=== PATIENT | female | born 1935 | race Caucasian/White ===

== ENCOUNTER 2020-02-14 11:34 | Outpatient (CLI) | payer MEDICARE, SELFPAY ==
[2020-02-14 12:17] LABS: Alanine Aminotransferase 8 U/L (4-35); Aspartate Amino Transferase 41 U/L (14-36)
== END 2020-02-14 11:35 | disposition home or self-care (01) ==
LOC: ANHLAB 11:40
PROVIDERS: PCP Family Medicine Sports Medicine; Visit Provider Podiatrist Foot & Ankle Surgery
DX: B35.1 Tinea unguium (principal)
CPT/HCPCS: 36415; 84450; 84460

== ENCOUNTER 2022-06-23 00:35 | Day surgery (SDC) | payer MEDICARE, SELFPAY ==
[2022-06-10 15:37] VITALS: BMI 29.7
[2022-06-23 10:05] VITALS: BP 166/65; PULSE 76; RESP 18; TEMP 36.1; O2SAT 99; BMI 29.3
--- NOTE | 2022-06-23 10:17 | WPDHPUPDATE1 ---
History and Physical Update Update Date/Time: 06/23/22 10:17 History and Physical has been reviewed, including an updated exam of the patient. There are NO changes in the patient's condition. Risks, benefits, and alternatives have been discussed and questions answered. Patient agrees to proceed with procedure.
[2022-06-23] MEDS: LACTATED RINGERS 1,000 ML 150 ML IV CONT (10:36)
--- NOTE | 2022-06-23 11:19 | WPDANESEPPF ---
Anes - Initial Pre Proc Eval Procedure: Operation Date: 06/23/22 11:30 Proposed Procedures p Colonoscopy - Richard Jones MD Date/Time: 06/23/22 11:19 Surgeon: Richard Jones MD Pre Op Diagnosis: change in stool Patient Data Age: 87 Gender: F Height: 1.55 m Weight: 70.5 kg Last Vital Signs Temp 96.9 F L 06/23/22 10:05 Pulse 76 06/23/22 10:05 Resp 18 06/23/22 10:05 BP 166/65 H 06/23/22 10:05 Pulse Ox 99 06/23/22 10:05 O2 Del Method Room Air 06/23/22 10:05 Allergies Allergy/AdvReac Type Severity Reaction Status Date / Time latex Allergy Unknown unknown Verified 06/23/22 10:14 naproxen [From Aleve] Allergy Unknown unknown Verified 06/23/22 10:14 Home Medications Medication Instructions Recorded Confirmed Type cholecalciferol (vitamin D3) 10 10 mcg PO DAILY 02/22/20 06/23/22 History mcg (400 unit) capsule levothyroxine 50 mcg capsule 50 mcg PO DAILY 02/22/20 06/23/22 History lisinopril 10 mg tablet 10 mg PO DAILY 02/22/20 06/23/22 History Adult One Daily Multivitamin 1 tab-cap PO DAILY 06/10/22 06/23/22 History Patient hx anesthesia problems: none Family hx anesthesia problems: none Results Review: All pre-operative results and documents have been reviewed as part of the pre-operative evaluation. [facility] Past Medical History Medical History (Updated 06/03/22 @ 17:18 by DEISY Alexander) Breast lump in female Change in bowel habits Hypertension Left lower quadrant abdominal pain Left lower quadrant abdominal swelling Thyroid cancer Social History Social History Smoking status: Never smoker Alcohol intake: never Substance use: never Substance use type: does not use Living arrangements: with family Spiritual care concerns: No Anes - Eval Final PreProcedure Day of Procedure 06/23/22 11:19 Patient weight: normal Heart: regular rate and rhythm and murmur Lungs: clear to auscultation Airway: Mallampati scale class II Neurological: alert and oriented Last oral intake: >/= 8 hours ASA classification: III Emergent: no Anesthetic plan: proceed Anesthesia type and monitoring: general GIVS and standard monitoring Results Review: All pre-operative results and documents have been reviewed as part of the pre-operative evaluation. Informed Consent: The patient's anesthetic plan and its attendant risks and benefits were discussed with the patient/family/POA. Questions were solicited and answers provided to the satisfaction of the patient/family/POA.
[2022-06-23 11:48] VITALS: BP 139/68; PULSE 74; RESP 22; O2SAT 97
--- NOTE | 2022-06-23 11:49 | SUR.OPER ---
Reported to Dr. Jones that Polyp was not seen in polyp trap, large amounts of debris noted to be in polyp trap. No further orders given by .
[2022-06-23 11:58] VITALS: BP 150/92; PULSE 70; RESP 18; O2SAT 98
[2022-06-23 12:08] VITALS: BP 153/86; PULSE 72; RESP 20; O2SAT 99
== END 2022-06-23 12:15 | disposition home or self-care (01) ==
PROVIDERS: PCP Family Medicine Sports Medicine; Visit Provider Internal Medicine Gastroenterology
PROC: 0DJD8ZZ Inspection of Lower Intestinal Tract, Via Natural or Artificial Opening Endoscopic (ICD-10-PCS; CPT 45378; principal; 2022-06-23 11:30)
DX: R19.4 Change in bowel habit (principal); K63.5 Polyp of colon; K64.8 Other hemorrhoids; K57.30 Diverticulosis of large intestine without perforation or abscess without bleeding; I10 Essential (primary) hypertension; I73.9 Peripheral vascular disease, unspecified; Z85.3 Personal history of malignant neoplasm of breast; Z85.850 Personal history of malignant neoplasm of thyroid
CPT/HCPCS: 45385; J2704; J7120

== ENCOUNTER 2022-07-03 12:37 | Outpatient (CLI) | payer MEDICARE, SELFPAY ==
--- NOTE | ~2022-07-03 | CT_ITS ---
EXAMINATION: CT abdomen pelvis w con DATE: 07/03/2022 13:26 INDICATION: Diverticulosis TECHNIQUE: Computed tomography (CT) of the abdomen and pelvis was performed with 100 cc Omnipaque 350 intravenous contrast. The dose-length product was 562.25 mGy-cm. Automated exposure control and iter ative reconstruction technique were employed. COMPARISON: No prior studies for comparison. FINDINGS: Heart size normal. There is dependent atelectasis. There is calcified granuloma in the righ t lower lobe. Moderate size hiatal hernia. Colonic diverticulosis without evidence for diverticulitis . Nonobstructive bowel pattern. There is mild thickening of the rectum, nonspecific. Recommend correl ation with digital rectal examination. No significant vascular abnormality. No lymphadenopathy. There is bilateral renal atrophy. The liver, spleen, adrenal glands are unremarkable. There are accessory splenules. The pancreas is atrophic. Small ventral hernia containing fat. Retroaortic left renal vein . No free air or free fluid. Severe lumbar spondylosis with levoscoliosis. There is osteoarthritis of the hips. IMPRESSION: 1. Colonic diverticulosis without acute diverticulitis. 2: Mild asymmetric thickening of the rectum. Cannot exclude underlying mass. Recommend correlation wi digital rectal examination. 3: Moderate size hiatal hernia. 4: Bilateral renal and pancreatic atrophy. Reviewed, dictated and finalized at location A. IMPRESSION: 1. Colonic diverticulosis without acute diverticulitis. 2: Mild asymmetric thickening of the rectum. Cannot exclude underlying mass. Re commend correlation with digital rectal examination. 3: Moderate size hiatal hernia. 4: Bilateral renal and pancreatic atrophy.
[2022-07-03 13:20] LABS: Estimated Glomerular Filt Rate 39
== END 2022-07-03 12:38 | disposition home or self-care (01) ==
LOC: ANHIMG 12:39
PROVIDERS: PCP Family Medicine Sports Medicine; Visit Provider Internal Medicine Gastroenterology
DX: R10.32 Left lower quadrant pain (principal); R19.04 Left lower quadrant abdominal swelling, mass and lump; K57.30 Diverticulosis of large intestine without perforation or abscess without bleeding; K44.9 Diaphragmatic hernia without obstruction or gangrene; N28.89 Other specified disorders of kidney and ureter
CPT/HCPCS: 74177; Q9967